=== PATIENT | male | born 1945 | race Caucasian/White ===

== ENCOUNTER 2019-04-06 18:58 | Inpatient (IN) | payer MEDICARE, MEDICAID ==
[2019-04-06 21:15] VITALS: BP 153/82
[2019-04-07] MEDS ORDERED: Maalox 30 mL Cup PO PRN (01:37)
[2019-04-07] MEDS ORDERED: Albuterol/Ipratropium Neb 3 ML AERS HHN PRN (01:37)
[2019-04-07] MEDS: Levothyroxine 0.05 Mg Tab PO SCH (06:46)
[2019-04-07] MEDS ORDERED: VALBENAZINE TOSYLATE 80 MG PO SCH (09:00)
--- NOTE | 2019-04-07 20:44 | History & Physical ---
ADMIT DATE: 04/06/2019 HISTORY OF PRESENT ILLNESS: The patient is a 73-year-old male with long history of Parkinson disease, hypothyroidism, psychosis, admitted to [facility] with pneumonia and confusion. The patient was evaluated by Dr. Hanna and he put the patient on 5150. The patient transferred to [facility] for more evaluation and treatment. The patient still has cough, no fever, no chills. PAST MEDICAL HISTORY: Significant for Parkinson disease, hypothyroidism, and constipation. PAST SURGICAL HISTORY: No recent surgery. ALLERGIES: None. There is no allergy to any medicine. SOCIAL HISTORY: No smoking, no alcohol, no drug. FAMILY HISTORY: Noncontributory. REVIEW OF SYSTEMS: RENAL SYSTEM: No history of chronic renal disorder. CARDIOVASCULAR SYSTEM: No coronary artery disease. ENDOCRINE SYSTEM: Has history of hypothyroidism. GASTROINTESTINAL SYSTEM: No upper or lower GI bleeding. NEUROLOGICAL SYSTEM: No seizure disorder. SKELETOMUSCULAR SYSTEM: No muscular dystrophy. HEMATOLOGICAL: No bleeding tendencies. RESPIRATORY SYSTEM: No asthma. GENITOURINARY: No dysuria or hematuria. PHYSICAL EXAMINATION: GENERAL: He is awake, mildly confused. VITAL SIGNS: Temperature is 97.4, heart rate 68, blood pressure 105/75. HEENT: Pupils reacting equal to light and accommodation. Sclerae clear. NECK: Supple. Negative for lymphadenopathy, JVD or bruit. CHEST: Entry of air bilaterally mildly diminished. No wheezing. HEART: S1, S2 normal. No murmur or gallop. ABDOMEN: Soft, bowel sounds positive. EXTREMITIES: No edema. NEUROLOGIC: Awake, alert, mildly confused. No focal motor deficit. ASSESSMENT: 1. Pneumonia. 2. Parkinson disease. 3. Hypothyroidism. 4. Psychosis. PLAN: The patient admitted to the hospital under Dr. Hanna's service. Medical problems addressed during hospitalization is psychosis and pneumonia. Medical problems addressed at discharge are hypothyroidism, Parkinson disease. The patient is medically stable for activity. Thank you Dr. Hanna for asking me to see your patient. The patient is a full code. JOB# [id number]
--- NOTE | 2019-04-07 22:22 | Psychiatric Evaluation ---
DATE OF SERVICE: PSYCHIATRIC INITIAL EVALUATION AND MENTAL STATUS EXAM AGE: 73. SEX: Male. PHYSICIAN: Leticia Hanna M.D. CHIEF COMPLAINT: Depression and suicidal ideations. HISTORY OF PRESENT ILLNESS: This patient is a 73-year-old male, who has been under my care for treatment of depression in [facility]. The patient went to [facility] because of feeling weak and dizzy. Upon evaluation there, patient also was feeling hopeless and helpless and had suicidal ideations with no specific plan and the patient was placed on hold and transferred to a geropsychiatric unit. The patient said that he has been feeling depressed and he is not sure why except that he is feeling weak and he cannot do things that he used to do. He also has been isolative lately and has been having crying spells. The patient also was shaky in [facility]. He has been taking Abilify and also Depakote that was adjusted in [facility], but he was still severely depressed and suicidal. PAST PSYCHIATRIC HISTORY: The patient has history of schizoaffective disorder with multiple psychiatric hospitalizations. PAST MEDICAL HISTORY: The patient has history of hypertension and hypothyroidism. SOCIAL HISTORY: The patient lives in [facility]. The patient does not drink alcohol currently, but he has history of alcoholism. He denies any street drug use. ALLERGIES: No known allergies. MENTAL STATUS EXAMINATION: The patient appears his stated age. Anxious. Sad affect. In a depressed mood. Poor eye contact. Low tone and rate of speech. Thought processes are mainly goal directed. The patient denies any auditory or visual hallucinations or delusions. The patient admits to suicidal ideations with no specific plans, but denies any homicidal ideations. The patient is alert and oriented to time, place, person, and situation. Intact immediate, recent, and remote memories. Fair insight and judgment. Seems to be of average intelligence based on his verbal ability. ASSESSMENT: PRIMARY DIAGNOSES: Schizoaffective disorder, depressed episode, severe, without psychotic features. MEDICAL DIAGNOSES: 1. Hypertension. 2. Hypothyroidism. TREATMENT PLAN: We will monitor the patient's behavior and the condition closely. Also, we will start the individual as well as milieu psychotherapy. We will adjust the psychotropic medications. ESTIMATED LENGTH OF STAY: 5-7 days. PATIENT'S STRENGTHS AND WEAKNESSES: The patient's strength is not clear at this time except that he is cooperative with his treatment. Weakness is ineffective coping. AFTER DISCHARGE PLAN: The patient will return to [facility] and Outpatient Treatment and followup will continue as an outpatient. CRITERIA FOR DISCHARGE: The patient will not be suicidal and we will stabilize psychotropic medications and we will establish outpatient treatment plans. JOB# [id number]
[2019-04-08] MEDS: Levothyroxine 0.05 Mg Tab PO SCH (06:42)
[2019-04-08] MEDS: INGREZZA 80 MG PO SCH (12:00)
--- NOTE | 2019-04-08 20:48 | Internal Medicine Prog Note ---
Internal Medicine Subjective - Subjective Service Date: 04/08/19 Patient seen and examined:: with staff Patient is:: awake, verbal, in bed, talking Per staff patient has:: no adverse event Internal Medicine Objective - Physical Exam Vitals and I&O: Vital Signs Temp 97.9 F 04/08/19 14:00 Pulse 64 04/08/19 14:00 Resp 18 04/08/19 14:00 BP 106/62 04/08/19 14:00 Pulse Ox 96 04/08/19 14:00 Intake & Output 04/08/19 04/08/19 04/09/19 06:59 18:59 06:59 Intake Total 120 1200 Balance 120 1200 Intake: Oral 120 1200 Other: # Voids 3 # Bowel Movements 0 1 Active Medications: Current Medications Acetaminophen (Tylenol) 650 mg PO Q4H PRN PRN Reason: Mild Pain / Temp above 100 Stop: 06/06/19 01:36 Al Hydrox/Mg Hydrox/Simethicone (Maalox) 30 ml PO Q4HR PRN PRN Reason: GI DISTRESS Stop: 06/06/19 01:36 Albuterol/Ipratropium (Duoneb Neb) 3 ml HHN Q6HRT PRN PRN Reason: Shortness of Breath or Wheeze Stop: 06/06/19 01:36 Carbidopa/Levodopa (Sinemet 25mg-100 Mg) 1 tab PO TID [facility] Stop: 06/06/19 08:59 Last Admin: 04/08/19 20:29 Dose: 1 tab Divalproex Sodium (Depakote Er) 500 mg PO BID [facility]; Protocol Stop: 06/06/19 08:59 Last Admin: 04/08/19 16:43 Dose: 500 mg Docusate Sodium (Colace) 250 mg PO DAILY [facility] Stop: 06/06/19 08:59 Last Admin: 04/08/19 08:53 Dose: 250 mg Doxycycline Hyclate (Vibramycin) 100 mg PO BID [facility] Stop: 06/06/19 08:59 Last Admin: 04/08/19 16:43 Dose: 100 mg Escitalopram Oxalate (Lexapro) 20 mg PO HS [facility]; Protocol Stop: 06/06/19 20:59 Last Admin: 04/08/19 20:29 Dose: 20 mg Levothyroxine Sodium (Synthroid) 0.05 mg PO QDAC [facility] Stop: 06/06/19 07:29 Last Admin: 04/08/19 06:42 Dose: 0.05 mg Lorazepam (Ativan) 0.5 mg PO Q4HR PRN; Protocol PRN Reason: Anxiety Stop: 05/06/19 23:30 Memantine (Namenda) 5 mg PO BID [facility] Stop: 06/06/19 08:59 Last Admin: 04/08/19 16:43 Dose: 5 mg Mirtazapine (Remeron) 15 mg PO HS [facility]; Protocol Stop: 06/07/19 20:59 Last Admin: 04/08/19 20:30 Dose: 15 mg Patient Own Med- Ingrezza ( Valbenazine) 80mg Cap 1 PO DAILY [facility] Stop: 06/07/19 11:59 Last Admin: 04/08/19 12:00 Dose: 1 Trazodone HCl (Desyrel) 50 mg PO HS PRN; Protocol PRN Reason: Insomnia Stop: 06/06/19 20:59 General: alert, demented HEENT: NC/AT, PERRLA, EOMI, anicteric sclerae, throat clear Neck: Supple, No JVD, No thyromegaly, +2 carotid pulse wo bruit, No LAD, + JVD Lungs: CTAB Cardiovascular: RRR, Normal S1, Normal S2 Abdomen: non-tender, non-distended Extremities: clear Neurological: no change - Procedures Procedures: Procedures Procedure Code Date OTHER GROUP THERAPY 94.44 03/22/13 Internal Medicine Assmt/Plan - Assessment Assessment: 1.PNEUMONIA. 2.PARKINSON DISEASE. 3.HYPOTHYROIDISM 4.PSYCHOSIS. - Plan Plan: CONTINUE ON CURRENT MEDICATION AND DIET.
--- NOTE | 2019-04-09 01:40 | Progress Notes ---
DATE: 04/08/2019 SUBJECTIVE: Chart reviewed and the patient interviewed. Also discussed the patient's condition with the staff and reviewed records and labs. The patient remains severely depressed and withdrawn. The patient also is guarded. Also, feels hopeless and helpless. The patient also is interacting minimally with others. Also, still complaining of feeling shaky and dizzy, but not as much. He also tries to interact slightly more. He is still complaining of feeling depressed with intermittent thoughts of suicide. ASSESSMENT: The patient is still severely depressed. TREATMENT PLAN: Continue to monitor his behavior and his condition closely. Also, we will stop Wellbutrin because of his shakiness and also decrease Remeron to 15 mg at bedtime. Also, we will stop Aricept and Ambien. Also, change trazodone to p.r.n. basis and we will continue to follow up closely. JOB# [id number]
[2019-04-09] MEDS: Levothyroxine 0.05 Mg Tab PO SCH (06:31)
[2019-04-09] MEDS: INGREZZA 80 MG PO SCH (09:38)
--- NOTE | 2019-04-09 16:50 | Internal Medicine Prog Note ---
Internal Medicine Subjective - Subjective Service Date: 04/09/19 Patient seen and examined:: without staff (HE FEELS WELL) Patient is:: awake, verbal, in bed, talking Per staff patient has:: no adverse event Internal Medicine Objective - Physical Exam Vitals and I&O: Vital Signs Temp 97.6 F 04/09/19 14:00 Pulse 62 04/09/19 14:00 Resp 18 04/09/19 14:00 BP 123/75 04/09/19 14:00 Pulse Ox 96 04/09/19 14:00 Intake & Output 04/08/19 04/09/19 04/09/19 18:59 06:59 18:59 Intake Total 1200 120 Balance 1200 120 Intake: Oral 1200 120 Other: # Voids 2 # Bowel Movements 1 0 Active Medications: Current Medications Acetaminophen (Tylenol) 650 mg PO Q4H PRN PRN Reason: Mild Pain / Temp above 100 Stop: 06/06/19 01:36 Al Hydrox/Mg Hydrox/Simethicone (Maalox) 30 ml PO Q4HR PRN PRN Reason: GI DISTRESS Stop: 06/06/19 01:36 Albuterol/Ipratropium (Duoneb Neb) 3 ml HHN Q6HRT PRN PRN Reason: Shortness of Breath or Wheeze Stop: 06/06/19 01:36 Carbidopa/Levodopa (Sinemet 25mg-100 Mg) 1 tab PO TID [facility] Stop: 06/06/19 08:59 Last Admin: 04/09/19 13:24 Dose: 1 tab Divalproex Sodium (Depakote Er) 500 mg PO BID [facility]; Protocol Stop: 06/06/19 08:59 Last Admin: 04/09/19 16:22 Dose: 500 mg Docusate Sodium (Colace) 250 mg PO DAILY [facility] Stop: 06/06/19 08:59 Last Admin: 04/09/19 09:37 Dose: 250 mg Doxycycline Hyclate (Vibramycin) 100 mg PO BID [facility] Stop: 06/06/19 08:59 Last Admin: 04/09/19 16:22 Dose: 100 mg Escitalopram Oxalate (Lexapro) 20 mg PO HS [facility]; Protocol Stop: 06/06/19 20:59 Last Admin: 04/08/19 20:29 Dose: 20 mg Levothyroxine Sodium (Synthroid) 0.05 mg PO QDAC [facility] Stop: 06/06/19 07:29 Last Admin: 04/09/19 06:31 Dose: 0.05 mg Lorazepam (Ativan) 0.5 mg PO Q4HR PRN; Protocol PRN Reason: Anxiety Stop: 05/06/19 23:30 Memantine (Namenda) 5 mg PO BID [facility] Stop: 06/06/19 08:59 Last Admin: 04/09/19 16:22 Dose: 5 mg Mirtazapine (Remeron) 15 mg PO HS [facility]; Protocol Stop: 06/07/19 20:59 Last Admin: 04/08/19 20:30 Dose: 15 mg Patient Own Med- Ingrezza ( Valbenazine) 80mg Cap 1 PO DAILY [facility] Stop: 06/07/19 11:59 Last Admin: 04/09/19 09:38 Dose: 1 Trazodone HCl (Desyrel) 50 mg PO HS PRN; Protocol PRN Reason: Insomnia Stop: 06/06/19 20:59 General: alert, demented HEENT: NC/AT, PERRLA, EOMI, anicteric sclerae, throat clear Neck: Supple, No JVD, No thyromegaly, +2 carotid pulse wo bruit, No LAD, + JVD Lungs: CTAB Cardiovascular: RRR, Normal S1, Normal S2 Abdomen: non-tender, non-distended Extremities: clear Neurological: no change - Procedures Procedures: Procedures Procedure Code Date OTHER GROUP THERAPY 94.44 03/22/13 Internal Medicine Assmt/Plan - Assessment Assessment: 1.PNEUMONIA. 2.PARKINSON DISEASE. 3.HYPOTHYROIDISM 4.PSYCHOSIS. - Plan Plan: CONTINUE ON CURRENT MEDICATION AND DIET.
--- NOTE | 2019-04-09 19:19 | Progress Notes ---
DATE: SUBJECTIVE: Chart was reviewed and the patient interviewed. Also discussed the patient's condition with the staff and reviewed records and labs. The patient is still in a depressed mood, but his affect is slightly brighter. The patient also is still guarded and withdrawn, but seems to be more visible today. The patient also at times feels hopeless, but he denies any intention to harm himself or others. The patient also is compliant with taking his medications with no side effects of medications. ASSESSMENT: The patient is still depressed. TREATMENT PLAN: We will continue to monitor behavior and condition closely. Also, we will get Depakote blood level. Also, we will work on his ineffective coping and we will continue to follow up closely. [facility]# [id number]
[2019-04-10] MEDS: Levothyroxine 0.05 Mg Tab PO SCH (06:42)
[2019-04-10] MEDS: INGREZZA 80 MG PO SCH (09:14)
--- NOTE | 2019-04-10 18:06 | Internal Medicine Prog Note ---
Internal Medicine Subjective - Subjective Service Date: 04/10/19 Patient seen and examined:: without staff (he feels better) Patient is:: awake, verbal, in bed, talking Per staff patient has:: no adverse event Internal Medicine Objective - Physical Exam Vitals and I&O: Vital Signs Temp 97.6 F 04/10/19 14:00 Pulse 98 04/10/19 14:00 Resp 18 04/10/19 14:00 BP 125/53 04/10/19 14:00 Pulse Ox 99 04/10/19 14:00 Intake & Output 04/09/19 04/10/19 04/10/19 18:59 06:59 18:59 Intake Total 1080 120 Balance 1080 120 Intake: Oral 1080 120 Other: # Voids 4 3 # Bowel Movements 1 0 Active Medications: Current Medications Acetaminophen (Tylenol) 650 mg PO Q4H PRN PRN Reason: Mild Pain / Temp above 100 Stop: 06/06/19 01:36 Al Hydrox/Mg Hydrox/Simethicone (Maalox) 30 ml PO Q4HR PRN PRN Reason: GI DISTRESS Stop: 06/06/19 01:36 Albuterol/Ipratropium (Duoneb Neb) 3 ml HHN Q6HRT PRN PRN Reason: Shortness of Breath or Wheeze Stop: 06/06/19 01:36 Carbidopa/Levodopa (Sinemet 25mg-100 Mg) 1 tab PO TID [facility] Stop: 06/06/19 08:59 Last Admin: 04/10/19 14:24 Dose: 1 tab Divalproex Sodium (Depakote Er) 500 mg PO BID [facility]; Protocol Stop: 06/06/19 08:59 Last Admin: 04/10/19 16:20 Dose: 500 mg Docusate Sodium (Colace) 250 mg PO DAILY [facility] Stop: 06/06/19 08:59 Last Admin: 04/10/19 09:14 Dose: 250 mg Doxycycline Hyclate (Vibramycin) 100 mg PO BID [facility] Stop: 06/06/19 08:59 Last Admin: 04/10/19 16:20 Dose: 100 mg Escitalopram Oxalate (Lexapro) 20 mg PO HS [facility]; Protocol Stop: 06/06/19 20:59 Last Admin: 04/09/19 20:51 Dose: 20 mg Levothyroxine Sodium (Synthroid) 0.05 mg PO QDAC [facility] Stop: 06/06/19 07:29 Last Admin: 04/10/19 06:42 Dose: 0.05 mg Lorazepam (Ativan) 0.5 mg PO Q4HR PRN; Protocol PRN Reason: Anxiety Stop: 05/06/19 23:30 Memantine (Namenda) 5 mg PO BID [facility] Stop: 06/06/19 08:59 Last Admin: 04/10/19 16:21 Dose: 5 mg Mirtazapine (Remeron) 15 mg PO HS [facility]; Protocol Stop: 06/07/19 20:59 Last Admin: 04/09/19 20:52 Dose: 15 mg Patient Own Med- Ingrezza ( Valbenazine) 80mg Cap 1 PO DAILY [facility] Stop: 06/07/19 11:59 Last Admin: 04/10/19 09:14 Dose: 1 Trazodone HCl (Desyrel) 50 mg PO HS PRN; Protocol PRN Reason: Insomnia Stop: 06/06/19 20:59 General: alert, demented HEENT: NC/AT, PERRLA, EOMI, anicteric sclerae, throat clear Neck: Supple, No JVD, No thyromegaly, +2 carotid pulse wo bruit, No LAD, + JVD Lungs: CTAB Cardiovascular: RRR, Normal S1, Normal S2 Abdomen: non-tender, non-distended Extremities: clear Neurological: no change - Procedures Procedures: Procedures Procedure Code Date OTHER GROUP THERAPY 94.44 03/22/13 Internal Medicine Assmt/Plan - Assessment Assessment: 1.PNEUMONIA. 2.PARKINSON DISEASE. 3.HYPOTHYROIDISM 4.PSYCHOSIS. - Plan Plan: CONTINUE ON CURRENT MEDICATION AND DIET.
--- NOTE | 2019-04-11 03:41 | Progress Notes ---
DATE: 04/10/2019 SUBJECTIVE: Chart was reviewed and the patient interviewed. Also discussed the patient's condition with the staff and reviewed records and labs. The patient is still severely depressed. The patient also is still guarded and withdrawn and his interaction with others is minimum. The patient also denies any intention to harm himself or others. On the other hand, the patient wants to be left alone and is still feeling hopeless and helpless and interacting minimally. ASSESSMENT: The patient is still depressed and high risk of suicide. TREATMENT PLAN: Continue to monitor behavior and condition closely. Also, continue adjusting psychotropic medications and work on his ineffective coping. JOB# [id number]
[2019-04-11] MEDS: Levothyroxine 0.05 Mg Tab PO SCH (06:40)
[2019-04-11] MEDS: INGREZZA 80 MG PO SCH (09:05)
--- NOTE | 2019-04-11 12:45 | Internal Medicine Prog Note ---
Internal Medicine Subjective - Subjective Service Date: 04/11/19 Patient seen and examined:: without staff (HE IS DOING WELL) Patient is:: awake, verbal, in bed, talking Per staff patient has:: no adverse event Internal Medicine Objective - Physical Exam Vitals and I&O: Vital Signs Temp 98.2 F 04/10/19 20:46 Pulse 71 04/10/19 20:46 Resp 18 04/10/19 20:46 BP 101/65 04/10/19 20:46 Pulse Ox 97 04/10/19 20:46 Intake & Output 04/10/19 04/11/19 04/11/19 18:59 06:59 18:59 Intake Total 950 240 Balance 950 240 Intake: Oral 950 240 Other: # Voids 4 1 # Bowel Movements 1 Active Medications: Current Medications Acetaminophen (Tylenol) 650 mg PO Q4H PRN PRN Reason: Mild Pain / Temp above 100 Stop: 06/06/19 01:36 Al Hydrox/Mg Hydrox/Simethicone (Maalox) 30 ml PO Q4HR PRN PRN Reason: GI DISTRESS Stop: 06/06/19 01:36 Albuterol/Ipratropium (Duoneb Neb) 3 ml HHN Q6HRT PRN PRN Reason: Shortness of Breath or Wheeze Stop: 06/06/19 01:36 Aripiprazole (Abilify) 5 mg PO DAILY [facility]; Protocol Stop: 06/11/19 08:59 Carbidopa/Levodopa (Sinemet 25mg-100 Mg) 1 tab PO TID [facility] Stop: 06/06/19 08:59 Last Admin: 04/11/19 09:04 Dose: 1 tab Divalproex Sodium (Depakote Er) 500 mg PO BID [facility]; Protocol Stop: 06/06/19 08:59 Last Admin: 04/11/19 09:04 Dose: 500 mg Docusate Sodium (Colace) 250 mg PO DAILY [facility] Stop: 06/06/19 08:59 Last Admin: 04/11/19 09:04 Dose: 250 mg Doxycycline Hyclate (Vibramycin) 100 mg PO BID [facility] Stop: 06/06/19 08:59 Last Admin: 04/11/19 09:11 Dose: 100 mg Escitalopram Oxalate (Lexapro) 20 mg PO HS [facility]; Protocol Stop: 06/06/19 20:59 Last Admin: 04/10/19 21:13 Dose: 20 mg Levothyroxine Sodium (Synthroid) 0.05 mg PO QDAC [facility] Stop: 06/06/19 07:29 Last Admin: 04/11/19 06:40 Dose: 0.05 mg Lorazepam (Ativan) 0.5 mg PO Q4HR PRN; Protocol PRN Reason: Anxiety Stop: 05/06/19 23:30 Memantine (Namenda) 5 mg PO BID [facility] Stop: 06/06/19 08:59 Last Admin: 04/11/19 09:04 Dose: 5 mg Mirtazapine (Remeron) 15 mg PO HS [facility]; Protocol Stop: 06/07/19 20:59 Last Admin: 04/10/19 21:14 Dose: 15 mg Patient Own Med- Ingrezza ( Valbenazine) 80mg Cap 1 PO DAILY [facility] Stop: 06/07/19 11:59 Last Admin: 04/11/19 09:05 Dose: 1 Trazodone HCl (Desyrel) 50 mg PO HS PRN; Protocol PRN Reason: Insomnia Stop: 06/06/19 20:59 General: alert, demented HEENT: NC/AT, PERRLA, EOMI, anicteric sclerae, throat clear Neck: Supple, No JVD, No thyromegaly, +2 carotid pulse wo bruit, No LAD, + JVD Lungs: CTAB Cardiovascular: RRR, Normal S1, Normal S2 Abdomen: non-tender, non-distended Extremities: clear Neurological: no change - Procedures Procedures: Procedures Procedure Code Date OTHER GROUP THERAPY 94.44 03/22/13 Internal Medicine Assmt/Plan - Assessment Assessment: 1.PNEUMONIA. 2.PARKINSON DISEASE. 3.HYPOTHYROIDISM 4.PSYCHOSIS. - Plan Plan: CONTINUE ON CURRENT MEDICATION AND DIET. Nutritional Asmnt/Malnutr-PDOC - Dietary Evaluation Malnutrition Findings (Please click <Entered> for more info): Nutritional Asmnt/Malnutrition Start: 04/11/19 11: 39 Text: Status: Active Freq: Protocol: Document 04/11/19 11:40 [email or web address] (Rec: 04/11/19 11:48 [email or web address]- [email or web address]) Nutritional Asmnt/Malnutrition Patient General Information Nutritional Screening Low Risk Diagnosis Psychosis Pertinent Medical Hx/Surgical Hx Parkinson disease, hypothyroidism, constipation Subjective Information Patient was admitted from [facility] with suicidal ideation and depression. Current Diet Order/ Nutrition Support Regular Patient / S.O Not Indicated Pertinent Medications Maalox, Colace Synthroid Nutritional Hx/Data Height 1.68 m Height (Calculated Centimeters) 167.6 Current Weight (lbs) 73.482 kg Weight (Calculated Kilograms) 73.5 Weight (Calculated Grams) 98293.0 [place] Body Weight 142 % [place] Body Weight 114 Body Mass Index (BMI) 26.1 Recent Weight Change No Weight Status Overweight GI Symptoms GI Symptoms None Last BM 04/10 x 1 Difficult in: None Food Allergies No Cultural/Ethnic/[employer] Belief none indicated Usual diet at home unknown Skin Integrity/Comment: Eddie 20, Intact Current %PO Good (75-100%) Estimated Nutritional Goals BEE in Kcals: Using Current wt Calories/Kcals/Kg 73.6kg CBW 25-30 kcal/kg Kcals Calculated ~7841-1184 kcal/day Protein: Using Current wt Protein g/k.8-1 gm/kg Protein Calculated ~60-75 gm/day Fluid: ml ~9464-1054 ml/day (1 ml/kcal) Nutritional Problem No current Nutrition Prob Problem No nutrition diagnosis at this time Intervention/Recommendation Comments 1. Continue regular diet as tolerated by patient. Expected Outcomes/Goals Expected Outcomes/Goals Oral intake >75% of meals, weight stable or trend toward IBW, nutrition related labs WNL F/U LR 04/18
--- NOTE | 2019-04-11 21:15 | Progress Notes ---
DATE: 04/11/2019 IDENTIFYING DATA: A 73-year-old male brought in here for suicidal ideation, depressive symptoms. Nursing staff reporting the patient has been isolative, disengaged. Today on [id number] evaluation, the patient reports hearing voices, depressed. EXAMINATION: Depressed, reporting voices. Reconciliation review includes Depakote, Lexapro, Namenda, mirtazapine. We will augment the current regimen with Abilify as he is endorsing voices. JOB# [id number]
[2019-04-12] MEDS: Levothyroxine 0.05 Mg Tab PO SCH (06:37)
[2019-04-12] MEDS: INGREZZA 80 MG PO SCH (09:02)
--- NOTE | 2019-04-12 19:35 | Internal Medicine Prog Note ---
Internal Medicine Subjective - Subjective Service Date: 04/12/19 Patient seen and examined:: without staff (HE FEELS BETTER) Patient is:: awake, verbal, in bed, talking Per staff patient has:: no adverse event Internal Medicine Objective - Physical Exam Vitals and I&O: Vital Signs Temp 98.2 F 04/12/19 14:00 Pulse 59 04/12/19 14:00 Resp 20 04/12/19 14:00 BP 123/76 04/12/19 14:00 Pulse Ox 99 04/12/19 14:00 Intake & Output 04/12/19 04/12/19 04/13/19 06:59 18:59 06:59 Intake Total 975 Balance 975 Intake: Oral 975 Other: # Voids # Bowel Movements 1 Active Medications: Current Medications Acetaminophen (Tylenol) 650 mg PO Q4H PRN PRN Reason: Mild Pain / Temp above 100 Stop: 06/06/19 01:36 Al Hydrox/Mg Hydrox/Simethicone (Maalox) 30 ml PO Q4HR PRN PRN Reason: GI DISTRESS Stop: 06/06/19 01:36 Albuterol/Ipratropium (Duoneb Neb) 3 ml HHN Q6HRT PRN PRN Reason: Shortness of Breath or Wheeze Stop: 06/06/19 01:36 Aripiprazole (Abilify) 5 mg PO DAILY [facility]; Protocol Stop: 06/11/19 08:59 Last Admin: 04/12/19 08:59 Dose: 5 mg Carbidopa/Levodopa (Sinemet 25mg-100 Mg) 1 tab PO TID [facility] Stop: 06/06/19 08:59 Last Admin: 04/12/19 08:59 Dose: 1 tab Divalproex Sodium (Depakote Er) 500 mg PO BID [facility]; Protocol Stop: 06/06/19 08:59 Last Admin: 04/12/19 08:59 Dose: 500 mg Docusate Sodium (Colace) 250 mg PO DAILY [facility] Stop: 06/06/19 08:59 Last Admin: 04/12/19 09:00 Dose: 250 mg Doxycycline Hyclate (Vibramycin) 100 mg PO BID [facility] Stop: 06/06/19 08:59 Last Admin: 04/12/19 09:00 Dose: 100 mg Escitalopram Oxalate (Lexapro) 20 mg PO HS [facility]; Protocol Stop: 06/06/19 20:59 Last Admin: 04/11/19 21:50 Dose: 20 mg Levothyroxine Sodium (Synthroid) 0.05 mg PO QDAC [facility] Stop: 06/06/19 07:29 Last Admin: 04/12/19 06:37 Dose: 0.05 mg Lorazepam (Ativan) 0.5 mg PO Q4HR PRN; Protocol PRN Reason: Anxiety Stop: 05/06/19 23:30 Memantine (Namenda) 5 mg PO BID [facility] Stop: 06/06/19 08:59 Last Admin: 04/12/19 09:00 Dose: 5 mg Mirtazapine (Remeron) 15 mg PO HS [facility]; Protocol Stop: 06/07/19 20:59 Last Admin: 04/11/19 21:50 Dose: 15 mg Patient Own Med- Ingrezza ( Valbenazine) 80mg Cap 1 PO DAILY [facility] Stop: 06/07/19 11:59 Last Admin: 04/12/19 09:02 Dose: 1 Trazodone HCl (Desyrel) 50 mg PO HS PRN; Protocol PRN Reason: Insomnia Stop: 06/06/19 20:59 General: alert, demented HEENT: NC/AT, PERRLA, EOMI, anicteric sclerae, throat clear Neck: Supple, No JVD, No thyromegaly, +2 carotid pulse wo bruit, No LAD, + JVD Lungs: CTAB Cardiovascular: RRR, Normal S1, Normal S2 Abdomen: non-tender, non-distended Extremities: clear Neurological: no change - Procedures Procedures: Procedures Procedure Code Date OTHER GROUP THERAPY 94.44 03/22/13 Internal Medicine Assmt/Plan - Assessment Assessment: 1.PARKINSON DISEASE. 2.HYPOTHYROIDISM 3.PSYCHOSIS. - Plan Plan: CONTINUE ON CURRENT MEDICATION AND DIET. Nutritional Asmnt/Malnutr-PDOC - Dietary Evaluation Malnutrition Findings (Please click <Entered> for more info): Nutritional Asmnt/Malnutrition Start: 04/11/19 11: 39 Text: Status: Complete Freq: Protocol: Document 04/11/19 11:40 KUMAR (Rec: 04/11/19 11:48 KUMAR [facility]- [email or web address]) Nutritional Asmnt/Malnutrition Patient General Information Nutritional Screening Low Risk Diagnosis Psychosis Pertinent Medical Hx/Surgical Hx Parkinson disease, hypothyroidism, constipation Subjective Information Patient was admitted from [facility] with suicidal ideation and depression. Patient in bed at time of visit, eating lunch. Current Diet Order/ Nutrition Support Regular Patient / S.O Not Indicated Pertinent Medications Maalox, Colace Synthroid Pertinent Labs 04/06- albumin 2.4, A1C 5 Nutritional Hx/Data Height 1.68 m Height (Calculated Centimeters) 167.6 Current Weight (lbs) 73.482 kg Weight (Calculated Kilograms) 73.5 Weight (Calculated Grams) 93007.0 [place] Body Weight 142 % [place] Body Weight 114 Body Mass Index (BMI) 26.1 Recent Weight Change No Weight Status Overweight GI Symptoms GI Symptoms None Last BM 04/10 x 1 Difficult in: None Food Allergies No Cultural/Ethnic/Jewish Belief none indicated Usual diet at home unknown Skin Integrity/Comment: Eddie 20, Intact Current %PO Good (75-100%) Estimated Nutritional Goals BEE in Kcals: Using Current wt Calories/Kcals/Kg 73.6kg CBW 25-30 kcal/kg Kcals Calculated ~0439-2079 kcal/day Protein: Using Current wt Protein g/k.8-1 gm/kg Protein Calculated ~60-75 gm/day Fluid: ml ~1407-8969 ml/day (1 ml/kcal) Nutritional Problem No current Nutrition Prob Problem No nutrition diagnosis at this time Intervention/Recommendation Comments 1. Continue regular diet as tolerated by patient. Expected Outcomes/Goals Expected Outcomes/Goals Oral intake >75% of meals, weight stable or trend toward IBW, nutrition related labs WNL F/U LR 04/18
--- NOTE | 2019-04-12 20:07 | Progress Notes ---
DATE: 04/12/2019 SUBJECTIVE: The patient was seen and evaluated. The patient's chart reviewed. Today on [id number] evaluation, the patient denies any side effects of the recent augmentation of the Abilify. He continues to report hearing voices. MENTAL STATUS EXAMINATION: Auditory hallucinations, depression. ASSESSMENT AND PLAN: Schizoaffective disorder. Per the returning physician, the patient was recently started on Abilify 5 mg, may need higher adjustments of medications to continue targeting the patient's ongoing voices that he continues to be distraught by. JOB# [id number]
[2019-04-13] MEDS: Levothyroxine 0.05 Mg Tab PO SCH (08:27)
[2019-04-13] MEDS: INGREZZA 80 MG PO SCH (08:27)
--- NOTE | 2019-04-13 15:18 | Internal Medicine Prog Note ---
Internal Medicine Subjective - Subjective Service Date: 04/13/19 Patient seen and examined:: without staff (HE IS DOING WELL) Patient is:: awake, verbal, in bed, talking Per staff patient has:: no adverse event Internal Medicine Objective - Physical Exam Vitals and I&O: Vital Signs Temp 97.6 F 04/13/19 14:00 Pulse 59 04/13/19 14:00 Resp 20 04/13/19 14:00 BP 102/66 04/13/19 14:00 Pulse Ox 98 04/13/19 14:00 Intake & Output 04/12/19 04/13/19 04/13/19 18:59 06:59 18:59 Intake Total 975 120 Balance 975 120 Intake: Oral 975 120 Other: # Voids 3 # Bowel Movements 1 Active Medications: Current Medications Acetaminophen (Tylenol) 650 mg PO Q4H PRN PRN Reason: Mild Pain / Temp above 100 Stop: 06/06/19 01:36 Al Hydrox/Mg Hydrox/Simethicone (Maalox) 30 ml PO Q4HR PRN PRN Reason: GI DISTRESS Stop: 06/06/19 01:36 Albuterol/Ipratropium (Duoneb Neb) 3 ml HHN Q6HRT PRN PRN Reason: Shortness of Breath or Wheeze Stop: 06/06/19 01:36 Aripiprazole (Abilify) 5 mg PO DAILY [facility]; Protocol Stop: 06/11/19 08:59 Last Admin: 04/13/19 08:27 Dose: 5 mg Carbidopa/Levodopa (Sinemet 25mg-100 Mg) 1 tab PO TID [facility] Stop: 06/06/19 08:59 Last Admin: 04/13/19 14:00 Dose: 1 tab Divalproex Sodium (Depakote Er) 500 mg PO BID [facility]; Protocol Stop: 06/06/19 08:59 Last Admin: 04/13/19 08:27 Dose: 500 mg Docusate Sodium (Colace) 250 mg PO DAILY [facility] Stop: 06/06/19 08:59 Last Admin: 04/13/19 08:28 Dose: 250 mg Doxycycline Hyclate (Vibramycin) 100 mg PO BID [facility] Stop: 06/06/19 08:59 Last Admin: 04/13/19 08:28 Dose: 100 mg Escitalopram Oxalate (Lexapro) 20 mg PO HS [facility]; Protocol Stop: 06/06/19 20:59 Last Admin: 04/12/19 20:21 Dose: 20 mg Levothyroxine Sodium (Synthroid) 0.05 mg PO QDAC [facility] Stop: 06/06/19 07:29 Last Admin: 04/13/19 08:27 Dose: 0.05 mg Lorazepam (Ativan) 0.5 mg PO Q4HR PRN; Protocol PRN Reason: Anxiety Stop: 05/06/19 23:30 Memantine (Namenda) 5 mg PO BID [facility] Stop: 06/06/19 08:59 Last Admin: 04/13/19 14:46 Dose: 5 mg Mirtazapine (Remeron) 15 mg PO HS [facility]; Protocol Stop: 06/07/19 20:59 Last Admin: 04/12/19 20:20 Dose: 15 mg Patient Own Med- Ingrezza ( Valbenazine) 80mg Cap 1 PO DAILY [facility] Stop: 06/07/19 11:59 Last Admin: 04/13/19 08:27 Dose: 1 Trazodone HCl (Desyrel) 50 mg PO HS PRN; Protocol PRN Reason: Insomnia Stop: 06/06/19 20:59 General: alert, demented HEENT: NC/AT, PERRLA, EOMI, anicteric sclerae, throat clear Neck: Supple, No JVD, No thyromegaly, +2 carotid pulse wo bruit, No LAD, + JVD Lungs: CTAB Cardiovascular: RRR, Normal S1, Normal S2 Abdomen: non-tender, non-distended Extremities: clear Neurological: no change - Procedures Procedures: Procedures Procedure Code Date OTHER GROUP THERAPY 94.44 03/22/13 Internal Medicine Assmt/Plan - Assessment Assessment: 1.PARKINSON DISEASE. 2.HYPOTHYROIDISM 3.PSYCHOSIS. - Plan Plan: CONTINUE ON CURRENT MEDICATION AND DIET. Nutritional Asmnt/Malnutr-PDOC - Dietary Evaluation Malnutrition Findings (Please click <Entered> for more info): Nutritional Asmnt/Malnutrition Start: 04/11/19 11: 39 Text: Status: Complete Freq: Protocol: Document 04/11/19 11:40 KUMAR (Rec: 04/11/19 11:48 KUMAR [facility]- [facility]) Nutritional Asmnt/Malnutrition Patient General Information Nutritional Screening Low Risk Diagnosis Psychosis Pertinent Medical Hx/Surgical Hx Parkinson disease, hypothyroidism, constipation Subjective Information Patient was admitted from [facility] with suicidal ideation and depression. Patient in bed at time of visit, eating lunch. Current Diet Order/ Nutrition Support Regular Patient / S.O Not Indicated Pertinent Medications Maalox, Colace Synthroid Pertinent Labs 04/06- albumin 2.4, A1C 5 Nutritional Hx/Data Height 1.68 m Height (Calculated Centimeters) 167.6 Current Weight (lbs) 73.482 kg Weight (Calculated Kilograms) 73.5 Weight (Calculated Grams) 99590.0 [place] Body Weight 142 % [place] Body Weight 114 Body Mass Index (BMI) 26.1 Recent Weight Change No Weight Status Overweight GI Symptoms GI Symptoms None Last BM 04/10 x 1 Difficult in: None Food Allergies No Cultural/Ethnic/Restorationism Belief none indicated Usual diet at home unknown Skin Integrity/Comment: Eddie 20, Intact Current %PO Good (75-100%) Estimated Nutritional Goals BEE in Kcals: Using Current wt Calories/Kcals/Kg 73.6kg CBW 25-30 kcal/kg Kcals Calculated ~4457-8831 kcal/day Protein: Using Current wt Protein g/k.8-1 gm/kg Protein Calculated ~60-75 gm/day Fluid: ml ~9943-6442 ml/day (1 ml/kcal) Nutritional Problem No current Nutrition Prob Problem No nutrition diagnosis at this time Intervention/Recommendation Comments 1. Continue regular diet as tolerated by patient. Expected Outcomes/Goals Expected Outcomes/Goals Oral intake >75% of meals, weight stable or trend toward IBW, nutrition related labs WNL F/U LR 04/18
[2019-04-14] MEDS: Levothyroxine 0.05 Mg Tab PO SCH (06:34)
--- NOTE | 2019-04-14 08:01 | Progress Notes ---
DATE: 04/13/2019 SUBJECTIVE: Chart was reviewed and the patient interviewed. Also discussed the patient's condition with the staff and reviewed records and labs. The patient is still complaining of feeling depressed and sad. Also, is still complaining of feeling weak and he stays in his bed most of the time. The patient also is still interacting minimally with others. Also, gait is still unsteady and because the patient is still feeling weak. Otherwise, the patient is compliant with taking his medications with no side effects. ASSESSMENT: The patient is still depressed and has ineffective coping. TREATMENT PLAN: Continue monitoring medications closely. Also, continue working on his ineffective coping and adjusting psychotropic medications. JOB# [id number]
[2019-04-14] MEDS: INGREZZA 80 MG PO SCH (08:31)
--- NOTE | 2019-04-14 19:57 | Internal Medicine Prog Note ---
Internal Medicine Subjective - Subjective Service Date: 04/14/19 Patient seen and examined:: without staff (HE IS DOING BETTER) Patient is:: awake, verbal, in bed, talking Per staff patient has:: no adverse event Internal Medicine Objective - Physical Exam Vitals and I&O: Vital Signs Temp 97.0 F 04/14/19 14:00 Pulse 58 04/14/19 14:00 Resp 18 04/14/19 14:00 BP 97/61 04/14/19 14:00 Pulse Ox 98 04/14/19 14:00 Intake & Output 04/14/19 04/14/19 04/15/19 06:59 18:59 06:59 Intake Total 240 860 Balance 240 860 Intake: Oral 240 740 Other 120 Other: # Voids 2 3 # Bowel Movements 0 Active Medications: Current Medications Acetaminophen (Tylenol) 650 mg PO Q4H PRN PRN Reason: Mild Pain (Scale 1-3) Stop: 06/06/19 01:36 Acetaminophen (Tylenol) 650 mg PO Q4H PRN PRN Reason: TEMP ABOVE 100 Stop: 06/13/19 15:43 Al Hydrox/Mg Hydrox/Simethicone (Maalox) 30 ml PO Q4HR PRN PRN Reason: GI DISTRESS Stop: 06/06/19 01:36 Albuterol/Ipratropium (Duoneb Neb) 3 ml HHN Q6HRT PRN PRN Reason: Shortness of Breath or Wheeze Stop: 06/06/19 01:36 Carbidopa/Levodopa (Sinemet 25mg-100 Mg) 1 tab PO TID [facility] Stop: 06/06/19 08:59 Last Admin: 04/14/19 14:11 Dose: Not Given Divalproex Sodium (Depakote Er) 500 mg PO BID [facility]; Protocol Stop: 06/06/19 08:59 Last Admin: 04/14/19 16:11 Dose: 500 mg Docusate Sodium (Colace) 250 mg PO DAILY [facility] Stop: 06/06/19 08:59 Last Admin: 04/14/19 08:28 Dose: 250 mg Doxycycline Hyclate (Vibramycin) 100 mg PO BID [facility] Stop: 06/06/19 08:59 Last Admin: 04/14/19 16:11 Dose: 100 mg Escitalopram Oxalate (Lexapro) 20 mg PO HS [facility]; Protocol Stop: 06/06/19 20:59 Last Admin: 04/13/19 20:58 Dose: 20 mg Levothyroxine Sodium (Synthroid) 0.05 mg PO QDAC [facility] Stop: 06/06/19 07:29 Last Admin: 04/14/19 06:34 Dose: 0.05 mg Lorazepam (Ativan) 0.5 mg PO Q4HR PRN; Protocol PRN Reason: Anxiety Stop: 05/06/19 23:30 Memantine (Namenda) 5 mg PO BID [facility] Stop: 06/06/19 08:59 Last Admin: 04/14/19 16:11 Dose: 5 mg Mirtazapine (Remeron) 7.5 mg PO HS [facility]; Protocol Stop: 06/13/19 20:59 Patient Own Med- Ingrezza ( Valbenazine) 80mg Cap 1 PO DAILY [facility] Stop: 06/07/19 11:59 Last Admin: 04/14/19 08:31 Dose: 1 Trazodone HCl (Desyrel) 50 mg PO HS PRN; Protocol PRN Reason: Insomnia Stop: 06/06/19 20:59 General: alert, demented HEENT: NC/AT, PERRLA, EOMI, anicteric sclerae, throat clear Neck: Supple, No JVD, No thyromegaly, +2 carotid pulse wo bruit, No LAD, + JVD Lungs: CTAB Cardiovascular: RRR, Normal S1, Normal S2 Abdomen: non-tender, non-distended Extremities: clear Neurological: no change - Procedures Procedures: Procedures Procedure Code Date OTHER GROUP THERAPY 94.44 03/22/13 Internal Medicine Assmt/Plan - Assessment Assessment: 1.PARKINSON DISEASE. 2.HYPOTHYROIDISM 3.PSYCHOSIS. - Plan Plan: CONTINUE ON CURRENT MEDICATION AND DIET. Nutritional Asmnt/Malnutr-PDOC - Dietary Evaluation Malnutrition Findings (Please click <Entered> for more info): Nutritional Asmnt/Malnutrition Start: 04/11/19 11: 39 Text: Status: Complete Freq: Protocol: Document 04/11/19 11:40 MMRICH (Rec: 04/11/19 11:48 MMRICH WALTERS- [facility]) Nutritional Asmnt/Malnutrition Patient General Information Nutritional Screening Low Risk Diagnosis Psychosis Pertinent Medical Hx/Surgical Hx Parkinson disease, hypothyroidism, constipation Subjective Information Patient was admitted from [facility] with suicidal ideation and depression. Patient in bed at time of visit, eating lunch. Current Diet Order/ Nutrition Support Regular Patient / S.O Not Indicated Pertinent Medications Maalox, Colace Synthroid Pertinent Labs 04/06- albumin 2.4, A1C 5 Nutritional Hx/Data Height 1.68 m Height (Calculated Centimeters) 167.6 Current Weight (lbs) 73.482 kg Weight (Calculated Kilograms) 73.5 Weight (Calculated Grams) 43424.0 [place] Body Weight 142 % [place] Body Weight 114 Body Mass Index (BMI) 26.1 Recent Weight Change No Weight Status Overweight GI Symptoms GI Symptoms None Last BM 04/10 x 1 Difficult in: None Food Allergies No Cultural/Ethnic/Buddhist Belief none indicated Usual diet at home unknown Skin Integrity/Comment: Eddie 20, Intact Current %PO Good (75-100%) Estimated Nutritional Goals BEE in Kcals: Using Current wt Calories/Kcals/Kg 73.6kg CBW 25-30 kcal/kg Kcals Calculated ~9400-0468 kcal/day Protein: Using Current wt Protein g/k.8-1 gm/kg Protein Calculated ~60-75 gm/day Fluid: ml ~1449-2870 ml/day (1 ml/kcal) Nutritional Problem No current Nutrition Prob Problem No nutrition diagnosis at this time Intervention/Recommendation Comments 1. Continue regular diet as tolerated by patient. Expected Outcomes/Goals Expected Outcomes/Goals Oral intake >75% of meals, weight stable or trend toward IBW, nutrition related labs WNL F/U LR 04/18
[2019-04-15] MEDS: Levothyroxine 0.05 Mg Tab PO SCH (06:45)
[2019-04-15] MEDS: INGREZZA 80 MG PO SCH (08:35)
--- NOTE | 2019-04-15 09:46 | Progress Notes ---
DATE: SUBJECTIVE: Chart was reviewed and the patient was interviewed. Also, discussed the patient's condition with the staff and reviewed records and labs. The patient is still complaining of feeling depressed and feeling weak. The patient also is still anxious and restless. He also tends to isolate himself and interacting minimally with others. Otherwise, the patient is cooperative with his treatment and compliant with taking his medications. He is still complaining of severe shakes of his hands and also occasional dizziness. Also, patient seems to be slightly better. ASSESSMENT: The patient is still depressed and high risk for suicide. TREATMENT PLAN: Continue to monitor behavior and condition closely. Also, continue adjusting psychotropic medications and working on behavioral modification. Also, we will discontinue Abilify and we will decrease Remeron to 7.5 mg at bedtime. Depakote blood level that was done on 04/09/2019 came back to be 65, which is within therapeutic level. JOB# [id number]
--- NOTE | 2019-04-15 19:14 | Internal Medicine Prog Note ---
Internal Medicine Subjective - Subjective Service Date: 04/15/19 Patient seen and examined:: without staff (HE IS DOING WELL) Patient is:: awake, verbal, in bed, talking Per staff patient has:: no adverse event Internal Medicine Objective - Physical Exam Vitals and I&O: Vital Signs Temp 97.1 F 04/15/19 14:13 Pulse 67 04/15/19 14:13 Resp 20 04/15/19 14:13 BP 98/69 04/15/19 14:13 Pulse Ox 98 04/15/19 14:13 Intake & Output 04/15/19 04/15/19 04/16/19 06:59 18:59 06:59 Intake Total 180 Balance 180 Intake: Oral 180 Other: # Voids 1 2 # Bowel Movements 1 1 Active Medications: Current Medications Acetaminophen (Tylenol) 650 mg PO Q4H PRN PRN Reason: Mild Pain (Scale 1-3) Stop: 06/06/19 01:36 Acetaminophen (Tylenol) 650 mg PO Q4H PRN PRN Reason: TEMP ABOVE 100 Stop: 06/13/19 15:43 Al Hydrox/Mg Hydrox/Simethicone (Maalox) 30 ml PO Q4HR PRN PRN Reason: GI DISTRESS Stop: 06/06/19 01:36 Albuterol/Ipratropium (Duoneb Neb) 3 ml HHN Q6HRT PRN PRN Reason: Shortness of Breath or Wheeze Stop: 06/06/19 01:36 Carbidopa/Levodopa (Sinemet 25mg-100 Mg) 1 tab PO TID [facility] Stop: 06/06/19 08:59 Last Admin: 04/15/19 13:57 Dose: 1 tab Divalproex Sodium (Depakote Er) 500 mg PO BID [facility]; Protocol Stop: 06/06/19 08:59 Last Admin: 04/15/19 16:45 Dose: 500 mg Docusate Sodium (Colace) 250 mg PO DAILY [facility] Stop: 06/06/19 08:59 Last Admin: 04/15/19 08:35 Dose: 250 mg Escitalopram Oxalate (Lexapro) 20 mg PO HS [facility]; Protocol Stop: 06/06/19 20:59 Last Admin: 04/14/19 21:43 Dose: 20 mg Levothyroxine Sodium (Synthroid) 0.05 mg PO QDAC [facility] Stop: 06/06/19 07:29 Last Admin: 04/15/19 06:45 Dose: 0.05 mg Lorazepam (Ativan) 0.5 mg PO Q4HR PRN; Protocol PRN Reason: Anxiety Stop: 05/06/19 23:30 Memantine (Namenda) 5 mg PO BID [facility] Stop: 06/06/19 08:59 Last Admin: 04/15/19 16:45 Dose: 5 mg Mirtazapine (Remeron) 7.5 mg PO HS [facility]; Protocol Stop: 06/13/19 20:59 Last Admin: 04/14/19 21:43 Dose: 7.5 mg Patient Own Med- Ingrezza ( Valbenazine) 80mg Cap 1 PO DAILY [facility] Stop: 06/07/19 11:59 Last Admin: 04/15/19 08:35 Dose: 1 Trazodone HCl (Desyrel) 50 mg PO HS PRN; Protocol PRN Reason: Insomnia Stop: 06/06/19 20:59 General: alert, demented HEENT: NC/AT, PERRLA, EOMI, anicteric sclerae, throat clear Neck: Supple, No JVD, No thyromegaly, +2 carotid pulse wo bruit, No LAD, + JVD Lungs: CTAB Cardiovascular: RRR, Normal S1, Normal S2 Abdomen: non-tender, non-distended Extremities: clear Neurological: no change - Procedures Procedures: Procedures Procedure Code Date OTHER GROUP THERAPY 94.44 03/22/13 Internal Medicine Assmt/Plan - Assessment Assessment: 1.PARKINSON DISEASE. 2.HYPOTHYROIDISM 3.PSYCHOSIS. - Plan Plan: CONTINUE ON CURRENT MEDICATION AND DIET. Nutritional Asmnt/Malnutr-PDOC - Dietary Evaluation Malnutrition Findings (Please click <Entered> for more info): Nutritional Asmnt/Malnutrition Start: 04/11/19 11: 39 Text: Status: Complete Freq: Protocol: Document 04/11/19 11:40 KUMAR (Rec: 04/11/19 11:48 KUMAR [facility]- [facility]) Nutritional Asmnt/Malnutrition Patient General Information Nutritional Screening Low Risk Diagnosis Psychosis Pertinent Medical Hx/Surgical Hx Parkinson disease, hypothyroidism, constipation Subjective Information Patient was admitted from [facility] with suicidal ideation and depression. Patient in bed at time of visit, eating lunch. Current Diet Order/ Nutrition Support Regular Patient / S.O Not Indicated Pertinent Medications Maalox, Colace Synthroid Pertinent Labs 04/06- albumin 2.4, A1C 5 Nutritional Hx/Data Height 1.68 m Height (Calculated Centimeters) 167.6 Current Weight (lbs) 73.482 kg Weight (Calculated Kilograms) 73.5 Weight (Calculated Grams) 85403.0 [place] Body Weight 142 % [place] Body Weight 114 Body Mass Index (BMI) 26.1 Recent Weight Change No Weight Status Overweight GI Symptoms GI Symptoms None Last BM 04/10 x 1 Difficult in: None Food Allergies No Cultural/Ethnic/Alevism Belief none indicated Usual diet at home unknown Skin Integrity/Comment: Eddie 20, Intact Current %PO Good (75-100%) Estimated Nutritional Goals BEE in Kcals: Using Current wt Calories/Kcals/Kg 73.6kg CBW 25-30 kcal/kg Kcals Calculated ~3175-6134 kcal/day Protein: Using Current wt Protein g/k.8-1 gm/kg Protein Calculated ~60-75 gm/day Fluid: ml ~4721-0948 ml/day (1 ml/kcal) Nutritional Problem No current Nutrition Prob Problem No nutrition diagnosis at this time Intervention/Recommendation Comments 1. Continue regular diet as tolerated by patient. Expected Outcomes/Goals Expected Outcomes/Goals Oral intake >75% of meals, weight stable or trend toward IBW, nutrition related labs WNL F/U LR 04/18
--- NOTE | 2019-04-16 01:36 | Progress Notes ---
DATE: SUBJECTIVE: Chart was reviewed and the patient interviewed. Also discussed the patient's condition with the staff and reviewed records and labs. The patient seems to be calmer and less depressed, but is still complaining of feeling hopeless and helpless. Also does not have any thoughts of suicide or homicide. The patient also seems to be slightly more visible in the unit, but at the same time still complaining of feeling weak, though seems slightly better since I cut down his Remeron yesterday. ASSESSMENT: The patient is still depressed and still can be high risk suicide. TREATMENT PLAN: Continue to monitor behavior and the condition closely. Also, continue Remeron, Lexapro, Depakote and Namenda and we will try to decrease his medications more because of his feeling weak. The patient also seems to be slightly less shaky. JOB# [id number]
[2019-04-16] MEDS: Levothyroxine 0.05 Mg Tab PO SCH (06:42)
[2019-04-16] MEDS: INGREZZA 80 MG PO SCH (09:58)
--- NOTE | 2019-04-16 10:28 | Progress Notes ---
DATE: 04/16/2019 SUBJECTIVE: Chart was reviewed and the patient interviewed. Also discussed the patient's condition with the staff and reviewed records and labs. The patient is still complaining of feeling severely depressed and complaining of feeling hopeless and helpless. The patient also is interacting minimally with peers and with others. The patient also wants to be left alone at times, although he starts to get out of his room slightly more. The patient also still has irritability at times, but at the same time, he is more cooperative with treatment. He is still complaining of feeling shaky. Otherwise, the patient is compliant with taking his medications with no side effects. ASSESSMENT: The patient is still depressed and still complaining of depression and hopeless feeling as well as weak. TREATMENT PLAN: Depakote blood level that was done on 04/09/2019 came back to be 65. We will continue same dose of Depakote. Also, I decreased the Remeron and other psychotropic medications and continue to work on both his depression as well as his feeling of dizziness. Also, we will decrease Namenda to 5 mg at bedtime. Hopefully, that also we will decrease his dizziness and we will continue to follow up. JOB# [id number]
--- NOTE | 2019-04-16 20:39 | General Progress Note ---
Subjective - Review of Systems Service Date: 04/16/19 Subjective: resting comfortably no distress Objective - Physical Exam Vitals and I&O: Vital Signs Temp 97.4 F 04/16/19 14:15 Pulse 57 04/16/19 14:15 Resp 20 04/16/19 14:15 BP 115/81 04/16/19 14:15 Pulse Ox 97 04/16/19 14:15 Intake & Output 04/16/19 04/16/19 04/17/19 06:59 18:59 06:59 Intake Total 120 120 Balance 120 120 Intake: Oral 120 120 Other: # Voids 2 2 # Bowel Movements 0 0 Active Medications: Current Medications Acetaminophen (Tylenol) 650 mg PO Q4H PRN PRN Reason: Mild Pain (Scale 1-3) Stop: 06/06/19 01:36 Acetaminophen (Tylenol) 650 mg PO Q4H PRN PRN Reason: TEMP ABOVE 100 Stop: 06/13/19 15:43 Al Hydrox/Mg Hydrox/Simethicone (Maalox) 30 ml PO Q4HR PRN PRN Reason: GI DISTRESS Stop: 06/06/19 01:36 Albuterol/Ipratropium (Duoneb Neb) 3 ml HHN Q6HRT PRN PRN Reason: Shortness of Breath or Wheeze Stop: 06/06/19 01:36 Carbidopa/Levodopa (Sinemet 25mg-100 Mg) 1 tab PO TID CARMELA Stop: 06/06/19 08:59 Last Admin: 04/16/19 15:00 Dose: Not Given Divalproex Sodium (Depakote Er) 500 mg PO BID [facility]; Protocol Stop: 06/06/19 08:59 Last Admin: 04/16/19 17:33 Dose: 500 mg Docusate Sodium (Colace) 250 mg PO DAILY CARMELA Stop: 06/06/19 08:59 Last Admin: 04/16/19 09:58 Dose: 250 mg Escitalopram Oxalate (Lexapro) 20 mg PO HS [facility]; Protocol Stop: 06/06/19 20:59 Last Admin: 04/15/19 21:30 Dose: 20 mg Levothyroxine Sodium (Synthroid) 0.05 mg PO QDAC [facility]A Stop: 06/06/19 07:29 Last Admin: 04/16/19 06:42 Dose: 0.05 mg Lorazepam (Ativan) 0.5 mg PO Q4HR PRN; Protocol PRN Reason: Anxiety Stop: 05/06/19 23:30 Memantine (Namenda) 5 mg PO HS CARMELA Stop: 06/15/19 20:59 Mirtazapine (Remeron) 7.5 mg PO HS [facility]ELA; Protocol Stop: 06/13/19 20:59 Last Admin: 04/15/19 21:30 Dose: 7.5 mg Patient Own Med- Ingrezza ( Valbenazine) 80mg Cap 1 PO DAILY CARMELA Stop: 06/07/19 11:59 Last Admin: 04/16/19 09:58 Dose: 1 Trazodone HCl (Desyrel) 50 mg PO HS PRN; Protocol PRN Reason: Insomnia Stop: 06/06/19 20:59 General: No acute distress HEENT: Atraumatic Neck: Supple, JVD Cardiovascular: Regular rate, Normal S1, Normal S2 Lungs: Clear to auscultation Abdomen: Bowel sounds, Soft - Procedures Procedures: Procedures Procedure Code Date OTHER GROUP THERAPY 94.44 03/22/13 Assessment/Plan - Assessment Assessment: 1.PARKINSON DISEASE. 2.HYPOTHYROIDISM 3.PSYCHOSIS. - Plan Plan: continue current treatment Nutritional Asmnt/Malnutr-PDOC - Dietary Evaluation Malnutrition Findings (Please click <Entered> for more info): Nutritional Asmnt/Malnutrition Start: 04/11/19 11: 39 Text: Status: Complete Freq: Protocol: Document 04/11/19 11:40 MMRICH (Rec: 04/11/19 11:48 MMRICH WALTERS- FNS1) Nutritional Asmnt/Malnutrition Patient General Information Nutritional Screening Low Risk Diagnosis Psychosis Pertinent Medical Hx/Surgical Hx Parkinson disease, hypothyroidism, constipation Subjective Information Patient was admitted from [facility] with suicidal ideation and depression. Patient in bed at time of visit, eating lunch. Current Diet Order/ Nutrition Support Regular Patient / S.O Not Indicated Pertinent Medications Maalox, Colace Synthroid Pertinent Labs 04/06- albumin 2.4, A1C 5 Nutritional Hx/Data Height 1.68 m Height (Calculated Centimeters) 167.6 Current Weight (lbs) 73.482 kg Weight (Calculated Kilograms) 73.5 Weight (Calculated Grams) 73401.0 [place] Body Weight 142 % [place] Body Weight 114 Body Mass Index (BMI) 26.1 Recent Weight Change No Weight Status Overweight GI Symptoms GI Symptoms None Last BM 04/10 x 1 Difficult in: None Food Allergies No Cultural/Ethnic/Evangelical Belief none indicated Usual diet at home unknown Skin Integrity/Comment: Eddie 20, Intact Current %PO Good (75-100%) Estimated Nutritional Goals BEE in Kcals: Using Current wt Calories/Kcals/Kg 73.6kg CBW 25-30 kcal/kg Kcals Calculated ~7176-9191 kcal/day Protein: Using Current wt Protein g/k.8-1 gm/kg Protein Calculated ~60-75 gm/day Fluid: ml ~7304-2462 ml/day (1 ml/kcal) Nutritional Problem No current Nutrition Prob Problem No nutrition diagnosis at this time Intervention/Recommendation Comments 1. Continue regular diet as tolerated by patient. Expected Outcomes/Goals Expected Outcomes/Goals Oral intake >75% of meals, weight stable or trend toward IBW, nutrition related labs WNL F/U LR 04/18
[2019-04-17] MEDS: Levothyroxine 0.05 Mg Tab PO SCH (06:38)
[2019-04-17] MEDS: INGREZZA 80 MG PO SCH (08:28)
--- NOTE | 2019-04-17 19:00 | General Progress Note ---
Subjective - Review of Systems Service Date: 04/17/19 Subjective: resting comfortably no distress Objective - Physical Exam Vitals and I&O: Vital Signs Temp 97.8 F 04/17/19 14:00 Pulse 60 04/17/19 14:00 Resp 20 04/17/19 14:00 BP 98/63 04/17/19 14:00 Pulse Ox 98 04/17/19 14:00 Intake & Output 04/17/19 04/17/19 04/18/19 06:59 18:59 06:59 Intake Total 240 1200 Balance 240 1200 Intake: Oral 240 1200 Other: # Voids 2 # Bowel Movements 0 1 Active Medications: Current Medications Acetaminophen (Tylenol) 650 mg PO Q4H PRN PRN Reason: Mild Pain (Scale 1-3) Stop: 06/06/19 01:36 Acetaminophen (Tylenol) 650 mg PO Q4H PRN PRN Reason: TEMP ABOVE 100 Stop: 06/13/19 15:43 Al Hydrox/Mg Hydrox/Simethicone (Maalox) 30 ml PO Q4HR PRN PRN Reason: GI DISTRESS Stop: 06/06/19 01:36 Albuterol/Ipratropium (Duoneb Neb) 3 ml HHN Q6HRT PRN PRN Reason: Shortness of Breath or Wheeze Stop: 06/06/19 01:36 Carbidopa/Levodopa (Sinemet 25mg-100 Mg) 1 tab PO TID CARMELA Stop: 06/06/19 08:59 Last Admin: 04/17/19 14:07 Dose: 1 tab Divalproex Sodium (Depakote Er) 500 mg PO BID [facility]; Protocol Stop: 06/06/19 08:59 Last Admin: 04/17/19 17:32 Dose: 500 mg Docusate Sodium (Colace) 250 mg PO DAILY CARMELA Stop: 06/06/19 08:59 Last Admin: 04/17/19 08:19 Dose: 250 mg Escitalopram Oxalate (Lexapro) 20 mg PO HS [facility]; Protocol Stop: 06/06/19 20:59 Last Admin: 04/16/19 21:28 Dose: 20 mg Levothyroxine Sodium (Synthroid) 0.05 mg PO QDAC [facility] Stop: 06/06/19 07:29 Last Admin: 04/17/19 06:38 Dose: 0.05 mg Lorazepam (Ativan) 0.5 mg PO Q4HR PRN; Protocol PRN Reason: Anxiety Stop: 05/06/19 23:30 Memantine (Namenda) 5 mg PO HS CARMELA Stop: 06/15/19 20:59 Last Admin: 04/16/19 21:28 Dose: 5 mg Mirtazapine (Remeron) 7.5 mg PO HS [facility]; Protocol Stop: 06/13/19 20:59 Last Admin: 04/16/19 21:28 Dose: 7.5 mg Patient Own Med- Ingrezza ( Valbenazine) 80mg Cap 1 PO DAILY CARMELA Stop: 06/07/19 11:59 Last Admin: 04/17/19 08:28 Dose: 1 Trazodone HCl (Desyrel) 50 mg PO HS PRN; Protocol PRN Reason: Insomnia Stop: 06/06/19 20:59 General: No acute distress HEENT: Atraumatic Neck: Supple, JVD Cardiovascular: Regular rate, Normal S1, Normal S2 Lungs: Clear to auscultation Abdomen: Bowel sounds, Soft - Procedures Procedures: Procedures Procedure Code Date OTHER GROUP THERAPY 94.44 03/22/13 Assessment/Plan - Assessment Assessment: 1.PARKINSON DISEASE. 2.HYPOTHYROIDISM 3.PSYCHOSIS. - Plan Plan: continue current treatment Nutritional Asmnt/Malnutr-PDOC - Dietary Evaluation Malnutrition Findings (Please click <Entered> for more info): Nutritional Asmnt/Malnutrition Start: 04/11/19 11: 39 Text: Status: Complete Freq: Protocol: Document 04/11/19 11:40 KUMAR (Rec: 04/11/19 11:48 MMRICH WALTERS FNS1) Nutritional Asmnt/Malnutrition Patient General Information Nutritional Screening Low Risk Diagnosis Psychosis Pertinent Medical Hx/Surgical Hx Parkinson disease, hypothyroidism, constipation Subjective Information Patient was admitted from [facility] with suicidal ideation and depression. Patient in bed at time of visit, eating lunch. Current Diet Order/ Nutrition Support Regular Patient / S.O Not Indicated Pertinent Medications Maalox, Colace Synthroid Pertinent Labs 04/06- albumin 2.4, A1C 5 Nutritional Hx/Data Height 1.68 m Height (Calculated Centimeters) 167.6 Current Weight (lbs) 73.482 kg Weight (Calculated Kilograms) 73.5 Weight (Calculated Grams) 66141.0 [place] Body Weight 142 % [place] Body Weight 114 Body Mass Index (BMI) 26.1 Recent Weight Change No Weight Status Overweight GI Symptoms GI Symptoms None Last BM 04/10 x 1 Difficult in: None Food Allergies No Cultural/Ethnic/Baptism Belief none indicated Usual diet at home unknown Skin Integrity/Comment: Eddie 20, Intact Current %PO Good (75-100%) Estimated Nutritional Goals BEE in Kcals: Using Current wt Calories/Kcals/Kg 73.6kg CBW 25-30 kcal/kg Kcals Calculated ~8159-9830 kcal/day Protein: Using Current wt Protein g/k.8-1 gm/kg Protein Calculated ~60-75 gm/day Fluid: ml ~4476-8898 ml/day (1 ml/kcal) Nutritional Problem No current Nutrition Prob Problem No nutrition diagnosis at this time Intervention/Recommendation Comments 1. Continue regular diet as tolerated by patient. Expected Outcomes/Goals Expected Outcomes/Goals Oral intake >75% of meals, weight stable or trend toward IBW, nutrition related labs WNL F/U LR 04/18
--- NOTE | 2019-04-18 04:18 | Progress Notes ---
DATE: 04/17/2019 SUBJECTIVE: Chart was reviewed and the patient interviewed. Also discussed the patient's condition with the staff and reviewed records and labs. The patient remains severely depressed. The patient's affect is still flat and he is still in a depressed mood. Also, continued to complain of feeling weak. The patient also is still guarded and still has difficulty coping. Otherwise, the patient is compliant with taking medications with no side effects of medications. TREATMENT PLAN: Continue monitoring the patient's behavior and condition closely. Also, continue adjusting psychotropic medications and work on behavioral modification and work on his ineffective coping. JOB# [id number]
[2019-04-18] MEDS: Levothyroxine 0.05 Mg Tab PO SCH (06:34)
[2019-04-18] MEDS: INGREZZA 80 MG PO SCH (09:12)
--- NOTE | 2019-04-18 15:20 | General Progress Note ---
Subjective - Review of Systems Service Date: 04/18/19 Subjective: resting comfortably no distress Objective - Physical Exam Vitals and I&O: Vital Signs Temp 98.2 F 04/18/19 14:00 Pulse 61 04/18/19 14:00 Resp 20 04/18/19 14:00 BP 95/57 04/18/19 14:00 Pulse Ox 98 04/18/19 14:00 Intake & Output 04/17/19 04/18/19 04/18/19 18:59 06:59 18:59 Intake Total 1200 240 Balance 1200 240 Intake: Oral 1200 240 Other: # Voids 2 # Bowel Movements 1 0 Active Medications: Current Medications Acetaminophen (Tylenol) 650 mg PO Q4H PRN PRN Reason: Mild Pain (Scale 1-3) Stop: 06/06/19 01:36 Acetaminophen (Tylenol) 650 mg PO Q4H PRN PRN Reason: TEMP ABOVE 100 Stop: 06/13/19 15:43 Al Hydrox/Mg Hydrox/Simethicone (Maalox) 30 ml PO Q4HR PRN PRN Reason: GI DISTRESS Stop: 06/06/19 01:36 Albuterol/Ipratropium (Duoneb Neb) 3 ml HHN Q6HRT PRN PRN Reason: Shortness of Breath or Wheeze Stop: 06/06/19 01:36 Carbidopa/Levodopa (Sinemet 25mg-100 Mg) 1 tab PO TID CARMELA Stop: 06/06/19 08:59 Last Admin: 04/18/19 13:47 Dose: 1 tab Divalproex Sodium (Depakote Er) 500 mg PO BID [facility]; Protocol Stop: 06/06/19 08:59 Last Admin: 04/18/19 09:13 Dose: 500 mg Docusate Sodium (Colace) 250 mg PO DAILY CARMELA Stop: 06/06/19 08:59 Last Admin: 04/18/19 09:12 Dose: 250 mg Escitalopram Oxalate (Lexapro) 20 mg PO HS [facility]A; Protocol Stop: 06/06/19 20:59 Last Admin: 04/17/19 20:39 Dose: 20 mg Levothyroxine Sodium (Synthroid) 0.05 mg PO QDAC CARMELA Stop: 06/06/19 07:29 Last Admin: 04/18/19 06:34 Dose: 0.05 mg Lorazepam (Ativan) 0.5 mg PO Q4HR PRN; Protocol PRN Reason: Anxiety Stop: 05/06/19 23:30 Mirtazapine (Remeron) 7.5 mg PO HS [facility]ELA; Protocol Stop: 06/13/19 20:59 Last Admin: 04/17/19 20:39 Dose: 7.5 mg Patient Own Med- Ingrezza ( Valbenazine) 80mg Cap 1 PO DAILY CARMELA Stop: 06/07/19 11:59 Last Admin: 04/18/19 09:12 Dose: 1 Trazodone HCl (Desyrel) 50 mg PO HS PRN; Protocol PRN Reason: Insomnia Stop: 06/06/19 20:59 General: No acute distress HEENT: Atraumatic Neck: Supple, JVD Cardiovascular: Regular rate, Normal S1, Normal S2 Lungs: Clear to auscultation Abdomen: Bowel sounds, Soft - Procedures Procedures: Procedures Procedure Code Date OTHER GROUP THERAPY 94.44 03/22/13 Assessment/Plan - Assessment Assessment: 1.PARKINSON DISEASE. 2.HYPOTHYROIDISM 3.PSYCHOSIS. - Plan Plan: continue current treatment Nutritional Asmnt/Malnutr-PDOC - Dietary Evaluation Malnutrition Findings (Please click <Entered> for more info): Nutritional Asmnt/Malnutrition Start: 04/11/19 11: 39 Text: Status: Complete Freq: Protocol: Document 04/11/19 11:40 MMULN (Rec: 04/11/19 11:48 MMULALEJANDRO WALTERS- FNS1) Nutritional Asmnt/Malnutrition Patient General Information Nutritional Screening Low Risk Diagnosis Psychosis Pertinent Medical Hx/Surgical Hx Parkinson disease, hypothyroidism, constipation Subjective Information Patient was admitted from [facility] with suicidal ideation and depression. Patient in bed at time of visit, eating lunch. Current Diet Order/ Nutrition Support Regular Patient / S.O Not Indicated Pertinent Medications Maalox, Colace Synthroid Pertinent Labs 04/06- albumin 2.4, A1C 5 Nutritional Hx/Data Height 1.68 m Height (Calculated Centimeters) 167.6 Current Weight (lbs) 73.482 kg Weight (Calculated Kilograms) 73.5 Weight (Calculated Grams) 80155.0 [place] Body Weight 142 % [place] Body Weight 114 Body Mass Index (BMI) 26.1 Recent Weight Change No Weight Status Overweight GI Symptoms GI Symptoms None Last BM 04/10 x 1 Difficult in: None Food Allergies No Cultural/Ethnic/Taoist Belief none indicated Usual diet at home unknown Skin Integrity/Comment: Eddie 20, Intact Current %PO Good (75-100%) Estimated Nutritional Goals BEE in Kcals: Using Current wt Calories/Kcals/Kg 73.6kg CBW 25-30 kcal/kg Kcals Calculated ~0991-7746 kcal/day Protein: Using Current wt Protein g/k.8-1 gm/kg Protein Calculated ~60-75 gm/day Fluid: ml ~3332-7392 ml/day (1 ml/kcal) Nutritional Problem No current Nutrition Prob Problem No nutrition diagnosis at this time Intervention/Recommendation Comments 1. Continue regular diet as tolerated by patient. Expected Outcomes/Goals Expected Outcomes/Goals Oral intake >75% of meals, weight stable or trend toward IBW, nutrition related labs WNL F/U LR 04/18
[2019-04-19] MEDS: Levothyroxine 0.05 Mg Tab PO SCH (07:01)
[2019-04-19] MEDS: INGREZZA 80 MG PO SCH (09:00)
--- NOTE | 2019-04-19 11:59 | Progress Notes ---
DATE: 04/18/2019 PSYCHIATRIC PROGRESS NOTE SUBJECTIVE: Chart reviewed and the patient interviewed. Also discussed the patient's condition with the staff and reviewed records and labs. The patient continued to complain of feeling depressed and complaining of feeling lack of energy and tired. The patient also is still withdrawn and interacting minimally with peers and with others. He also is still feeling hopeless and helpless, but he denies any thoughts of suicide or homicide. He wants to be left alone. ASSESSMENT: The patient is still depressed and is still high risk for suicide. TREATMENT PLAN: Continue to monitor his behavior and his condition closely. Also, stop Namenda and continue to work on reducing psychotropic medications. Also, continue to work on his ineffective coping and follow up closely. JOB# [id number]
--- NOTE | 2019-04-19 15:56 | General Progress Note ---
Subjective - Review of Systems Service Date: 04/19/19 Subjective: resting comfortably no distress Objective - Physical Exam Vitals and I&O: Vital Signs Temp 98 F 04/19/19 06:35 Pulse 65 04/19/19 06:35 Resp 20 04/19/19 06:35 BP 114/75 04/19/19 06:35 Pulse Ox 96 04/19/19 06:35 Intake & Output 04/18/19 04/19/19 04/19/19 18:59 06:59 18:59 Intake Total 1200 480 Output Total 1 Balance 1200 479 Intake: Oral 1200 480 Output: Urine/Stool Mix 1 Other: # Voids 1 # Bowel Movements 1 Active Medications: Current Medications Acetaminophen (Tylenol) 650 mg PO Q4H PRN PRN Reason: Mild Pain (Scale 1-3) Stop: 06/06/19 01:36 Acetaminophen (Tylenol) 650 mg PO Q4H PRN PRN Reason: TEMP ABOVE 100 Stop: 06/13/19 15:43 Al Hydrox/Mg Hydrox/Simethicone (Maalox) 30 ml PO Q4HR PRN PRN Reason: GI DISTRESS Stop: 06/06/19 01:36 Albuterol/Ipratropium (Duoneb Neb) 3 ml HHN Q6HRT PRN PRN Reason: Shortness of Breath or Wheeze Stop: 06/06/19 01:36 Carbidopa/Levodopa (Sinemet 25mg-100 Mg) 1 tab PO TID CARMELA Stop: 06/06/19 08:59 Last Admin: 04/19/19 10:13 Dose: 1 tab Divalproex Sodium (Depakote Er) 500 mg PO BID [facility]; Protocol Stop: 06/06/19 08:59 Last Admin: 04/19/19 10:11 Dose: 500 mg Docusate Sodium (Colace) 250 mg PO DAILY CARMELA Stop: 06/06/19 08:59 Last Admin: 04/19/19 10:12 Dose: 250 mg Escitalopram Oxalate (Lexapro) 20 mg PO HS [facility]; Protocol Stop: 06/06/19 20:59 Last Admin: 04/18/19 21:25 Dose: 20 mg Levothyroxine Sodium (Synthroid) 0.05 mg PO QDAC [facility] Stop: 06/06/19 07:29 Last Admin: 04/19/19 07:01 Dose: 0.05 mg Lorazepam (Ativan) 0.5 mg PO Q4HR PRN; Protocol PRN Reason: Anxiety Stop: 05/06/19 23:30 Mirtazapine (Remeron) 7.5 mg PO HS [facility]MELA; Protocol Stop: 06/13/19 20:59 Last Admin: 04/18/19 21:25 Dose: 7.5 mg Patient Own Med- Ingrezza ( Valbenazine) 40 Mg 2 PO DAILY CARMELA Stop: 06/07/19 11:59 Trazodone HCl (Desyrel) 50 mg PO HS PRN; Protocol PRN Reason: Insomnia Stop: 06/06/19 20:59 General: No acute distress HEENT: Atraumatic Neck: Supple, JVD Cardiovascular: Regular rate, Normal S1, Normal S2 Lungs: Clear to auscultation Abdomen: Bowel sounds, Soft - Procedures Procedures: Procedures Procedure Code Date OTHER GROUP THERAPY 94.44 03/22/13 Assessment/Plan - Assessment Assessment: 1.PARKINSON DISEASE. 2.HYPOTHYROIDISM 3.PSYCHOSIS. - Plan Plan: continue current treatment Nutritional Asmnt/Malnutr-PDOC - Dietary Evaluation Malnutrition Findings (Please click <Entered> for more info): Nutritional Asmnt/Malnutrition Start: 04/11/19 11: 39 Text: Status: Complete Freq: Protocol: Document 04/11/19 11:40 KUMAR (Rec: 04/11/19 11:48 KUMAR WALTERS- FNS1) Nutritional Asmnt/Malnutrition Patient General Information Nutritional Screening Low Risk Diagnosis Psychosis Pertinent Medical Hx/Surgical Hx Parkinson disease, hypothyroidism, constipation Subjective Information Patient was admitted from [facility] with suicidal ideation and depression. Patient in bed at time of visit, eating lunch. Current Diet Order/ Nutrition Support Regular Patient / S.O Not Indicated Pertinent Medications Maalox, Colace Synthroid Pertinent Labs 04/06- albumin 2.4, A1C 5 Nutritional Hx/Data Height 1.68 m Height (Calculated Centimeters) 167.6 Current Weight (lbs) 73.482 kg Weight (Calculated Kilograms) 73.5 Weight (Calculated Grams) 58078.0 [place] Body Weight 142 % [place] Body Weight 114 Body Mass Index (BMI) 26.1 Recent Weight Change No Weight Status Overweight GI Symptoms GI Symptoms None Last BM 04/10 x 1 Difficult in: None Food Allergies No Cultural/Ethnic/Restorationism Belief none indicated Usual diet at home unknown Skin Integrity/Comment: Eddie 20, Intact Current %PO Good (75-100%) Estimated Nutritional Goals BEE in Kcals: Using Current wt Calories/Kcals/Kg 73.6kg CBW 25-30 kcal/kg Kcals Calculated ~7361-8441 kcal/day Protein: Using Current wt Protein g/k.8-1 gm/kg Protein Calculated ~60-75 gm/day Fluid: ml ~1559-6409 ml/day (1 ml/kcal) Nutritional Problem No current Nutrition Prob Problem No nutrition diagnosis at this time Intervention/Recommendation Comments 1. Continue regular diet as tolerated by patient. Expected Outcomes/Goals Expected Outcomes/Goals Oral intake >75% of meals, weight stable or trend toward IBW, nutrition related labs WNL F/U LR 04/18
[2019-04-19] MEDS: INGREZZA 40 MG PO SCH (17:22)
--- NOTE | 2019-04-20 00:56 | Progress Notes ---
DATE: 04/19/2019 SUBJECTIVE: Chart was reviewed and the patient interviewed. Also discussed the patient's condition with the staff and reviewed records and labs. The patient is still in a depressed mood. The patient also is still complaining of feeling lack of energy, but he is more motivated. He seems to be getting out of his room more and trying to socialize and interact more. The patient also is still complaining of tremors, although it seems to be slightly less than before. Also, still compliant with taking his medications and he denies any side effects of medications. ASSESSMENT: The patient is still depressed, but not suicidal. TREATMENT PLAN: Continue monitoring behavior and condition closely. Also, continue adjusting psychotropic medications and work on behavioral modification. PSYCHIATRIC# [id number]
[2019-04-20] MEDS: Levothyroxine 0.05 Mg Tab PO SCH (06:36)
[2019-04-20] MEDS: INGREZZA 40 MG PO SCH (08:59)
--- NOTE | 2019-04-20 17:53 | Internal Medicine Prog Note ---
Internal Medicine Subjective - Subjective Service Date: 04/20/19 Patient seen and examined:: without staff (he feels well) Patient is:: awake, verbal, in bed, talking Per staff patient has:: no adverse event Internal Medicine Objective - Physical Exam Vitals and I&O: Vital Signs Temp 97.0 F 04/20/19 14:54 Pulse 77 04/20/19 14:54 Resp 18 04/20/19 14:54 BP 90/62 04/20/19 14:54 Pulse Ox 98 04/20/19 14:54 Intake & Output 04/19/19 04/20/19 04/20/19 18:59 06:59 18:59 Intake Total 800 300 Balance 800 300 Intake: Oral 800 300 Other: # Voids 3 1 # Bowel Movements 1 0 Active Medications: Current Medications Acetaminophen (Tylenol) 650 mg PO Q4H PRN PRN Reason: Mild Pain (Scale 1-3) Stop: 06/06/19 01:36 Acetaminophen (Tylenol) 650 mg PO Q4H PRN PRN Reason: TEMP ABOVE 100 Stop: 06/13/19 15:43 Al Hydrox/Mg Hydrox/Simethicone (Maalox) 30 ml PO Q4HR PRN PRN Reason: GI DISTRESS Stop: 06/06/19 01:36 Albuterol/Ipratropium (Duoneb Neb) 3 ml HHN Q6HRT PRN PRN Reason: Shortness of Breath or Wheeze Stop: 06/06/19 01:36 Carbidopa/Levodopa (Sinemet 25mg-100 Mg) 1 tab PO TID [facility] Stop: 06/06/19 08:59 Last Admin: 04/20/19 13:21 Dose: 1 tab Divalproex Sodium (Depakote Er) 500 mg PO BID [facility]; Protocol Stop: 06/06/19 08:59 Last Admin: 04/20/19 08:58 Dose: 500 mg Docusate Sodium (Colace) 250 mg PO DAILY [facility] Stop: 06/06/19 08:59 Last Admin: 04/20/19 08:58 Dose: 250 mg Escitalopram Oxalate (Lexapro) 20 mg PO HS [facility]; Protocol Stop: 06/06/19 20:59 Last Admin: 04/19/19 21:48 Dose: 20 mg Levothyroxine Sodium (Synthroid) 0.05 mg PO QDAC [facility] Stop: 06/06/19 07:29 Last Admin: 04/20/19 06:36 Dose: 0.05 mg Lorazepam (Ativan) 0.5 mg PO Q4HR PRN; Protocol PRN Reason: Anxiety Stop: 05/06/19 23:30 Mirtazapine (Remeron) 7.5 mg PO HS [facility]; Protocol Stop: 06/13/19 20:59 Last Admin: 04/19/19 21:48 Dose: 7.5 mg Patient Own Med- Ingrezza ( Valbenazine) 40 Mg 2 PO DAILY [facility] Stop: 06/07/19 11:59 Last Admin: 04/20/19 08:59 Dose: 2 Trazodone HCl (Desyrel) 50 mg PO HS PRN; Protocol PRN Reason: Insomnia Stop: 06/06/19 20:59 General: alert, demented HEENT: NC/AT, PERRLA, EOMI, anicteric sclerae, throat clear Neck: Supple, No JVD, No thyromegaly, +2 carotid pulse wo bruit, No LAD, + JVD Lungs: CTAB Cardiovascular: RRR, Normal S1, Normal S2 Abdomen: non-tender, non-distended Extremities: clear Neurological: no change - Procedures Procedures: Procedures Procedure Code Date OTHER GROUP THERAPY 94.44 03/22/13 Internal Medicine Assmt/Plan - Assessment Assessment: 1.PARKINSON DISEASE. 2.HYPOTHYROIDISM 3.PSYCHOSIS. - Plan Plan: CONTINUE ON CURRENT MEDICATION AND DIET. Nutritional Asmnt/Malnutr-PDOC - Dietary Evaluation Malnutrition Findings (Please click <Entered> for more info): Nutritional Asmnt/Malnutrition Start: 04/11/19 11: 39 Text: Status: Complete Freq: Protocol: Document 04/11/19 11:40 MMULN (Rec: 04/11/19 11:48 [email or web address] WALTERS- FNS1) Nutritional Asmnt/Malnutrition Patient General Information Nutritional Screening Low Risk Diagnosis Psychosis Pertinent Medical Hx/Surgical Hx Parkinson disease, hypothyroidism, constipation Subjective Information Patient was admitted from [facility] with suicidal ideation and depression. Patient in bed at time of visit, eating lunch. Current Diet Order/ Nutrition Support Regular Patient / S.O Not Indicated Pertinent Medications Maalox, Colace Synthroid Pertinent Labs 04/06- albumin 2.4, A1C 5 Nutritional Hx/Data Height 1.68 m Height (Calculated Centimeters) 167.6 Current Weight (lbs) 73.482 kg Weight (Calculated Kilograms) 73.5 Weight (Calculated Grams) 85404.0 [employer] Body Weight 142 % [employer] Body Weight 114 Body Mass Index (BMI) 26.1 Recent Weight Change No Weight Status Overweight GI Symptoms GI Symptoms None Last BM 04/10 x 1 Difficult in: None Food Allergies No Cultural/Ethnic/Yazidi Belief none indicated Usual diet at home unknown Skin Integrity/Comment: Eddie 20, Intact Current %PO Good (75-100%) Estimated Nutritional Goals BEE in Kcals: Using Current wt Calories/Kcals/Kg 73.6kg CBW 25-30 kcal/kg Kcals Calculated ~3887-4826 kcal/day Protein: Using Current wt Protein g/k.8-1 gm/kg Protein Calculated ~60-75 gm/day Fluid: ml ~7587-2881 ml/day (1 ml/kcal) Nutritional Problem No current Nutrition Prob Problem No nutrition diagnosis at this time Intervention/Recommendation Comments 1. Continue regular diet as tolerated by patient. Expected Outcomes/Goals Expected Outcomes/Goals Oral intake >75% of meals, weight stable or trend toward IBW, nutrition related labs WNL F/U LR 04/18
--- NOTE | 2019-04-20 19:20 | Discharge Summary ---
DATE OF DISCHARGE: 04/20/2019 AGE: 73. SEX: Male. PHYSICIAN: Dr. Hanna. PRIMARY DIAGNOSIS: Schizoaffective disorder, depressed episode, severe, without psychotic features. SECONDARY DIAGNOSES: 1. Hypertension. 2. Hypothyroidism. REASON FOR HOSPITALIZATION: The patient was admitted to the hospital because of increased depression and because of suicidal ideations and also complaining of generalized weakness. HOSPITAL COURSE: The patient continued to be severely depressed and withdrawn. The patient also was complaining of feeling weak. The patient also was feeling hopeless and helpless. He also was interacting minimally with peers and with others. He also wants to be left alone. On the other hand, the patient was complaining of tired and not suicidal. Remeron dose adjusted to dose of 7.5 mg at bedtime and Lexapro to 20 mg every day. Also, trazodone was decreased to 50 mg on a p.r.n. basis. Gradually, the patient's affect was brighter. The patient was less depressed. Also, continued to take Depakote in a dose of 200 mg twice a day. The patient was not suicidal or homicidal, but there was still complaining of dizziness and weakness. The patient was discharged from the hospital and accepted in [facility] and he was discharged there. Physical exam of the patient came as mentioned under final diagnosis. Blood workup was monitored closely. The patient had no major medical issues except that Parkinson's and also has shakiness and feeling dizzy and the patient was transferred to [facility] for rehabilitation. EXPECTED OUTCOME AFTER DISCHARGE: Fair, if the patient continues his outpatient treatment and follow up with his discharge plans. [facility]# [id number]
== END 2019-04-20 15:00 | DRG 885 ==
LOC: GERO 20:07
PROVIDERS: ADMIT Psychiatry & Neurology Psychiatry; ATTEND Psychiatry & Neurology Psychiatry
DX: F25.1 Schizoaffective disorder, depressive type (principal); J18.9 Pneumonia, unspecified organism; I10 Essential (primary) hypertension; E03.9 Hypothyroidism, unspecified; G20 Parkinson's disease; F29 Unspecified psychosis not due to a substance or known physiological condition
CPT/HCPCS: 83036-90; 90899; G0410; Z7610